=== PATIENT | male | born 1995 | race Caucasian/White ===

== ENCOUNTER → 2019-09-12 15:53 | Outpatient (CLI) | payer OTHER, SELFPAY | LOC: LAB 15:58 → PSN 16:02 | PROVIDERS: PCP Family Medicine; Referring Provider Internal Medicine Pulmonary Disease; Visit Provider Internal Medicine Pulmonary Disease | DX: J02.9 Acute pharyngitis, unspecified (principal) | CPT/HCPCS: 87880 ==